=== PATIENT | male | born 1960 | race Caucasian/White ===

== ENCOUNTER 2019-05-15 08:23 | Emergency (ER) | payer BC ==
[~2019-05-15] VITALS: Ht 175.3 cm; Wt 60.0 kg
--- NOTE | 2019-05-15 09:26 | NUR ---
bp on high side 184/115mmhg,patient reports he takes losartan at home and will take it when he gets home,Eleanor VENTURA aware.
[2019-05-15 09:47] VITALS: BP 174/115
[2019-05-15] MEDS ORDERED: HYDROcodone/acetaminophen 10/325mg tab PO ONE (09:50)
--- NOTE | 2019-05-15 09:59 | NUR ---
SPOKE WITH LORENZO ALAS REGARDING PATIENT'S PAIN AND HIS DESIRE FOR A MRI OR CT SCAN NOW. PATIENT STATED TO ME "I GUESS YOU GUYS DON'T CARE ABOUT ME" BECAUSE WE ARE NOT DOING THE IMAGING THAT THE PATIENT THINKS HE NEEDS. I GAVE THE PATIENT HIS NORCO FOR HIS 10/10 THROBBING PAIN, THE PATIENT STATED "YOU GUYS DONT GIVE A DAMN ABOUT MY PAIN, YOU DONT BELIEVE ME" i REASSURED THE PATIENT THAT WE DO CARE ABOUT HIME AND HIS PAIN AND I AM GIVING YOU PAIN MEDICINE. I TOLD THE PATIENT WHAT LORENZO ALAS SAID REGARDING FURTHER IMAGING; THE ORTHOPEDIST AT THE [facility] WOULD DETERMINE IF FURTHER IMAGING WAS NEEDED. WHEN I SAID THAT THE PATIENT SAID "WELL, I GUESS I'LL JUST GET UP AND LEAVE." I STATED THAT YOU CAN ALWAYS LEAVE AT ANYTIME, BUT WE WOULD LIKE YOU TO STAY AND COMPLETE TREATMENT. IF YOU STILL WANT TO LEAVE I WILL GET THE AMA FORM FOR YOU." PATIENT DECIDED TO STAY. PATIENT IS WEARING A RIGHT KNEE IMMOBILZER AND HAS CRUTCHES AT BEDSIDE
[2019-05-15] MEDS ORDERED: IBUP-1984 PO (10:41)
[2019-05-15] MEDS ORDERED: HYDR-4383 PO (10:41)
== END 2019-05-15 10:59 | disposition home or self-care (01) ==
LOC: ER 08:23
DX: M23.91 Unspecified internal derangement of right knee (principal); Z79.899 Other long term (current) drug therapy; Z79.1 Long term (current) use of non-steroidal anti-inflammatories (NSAID); Z95.0 Presence of cardiac pacemaker; Z86.2 Personal history of diseases of the blood and blood-forming organs and certain disorders involving the immune mechanism; W18.39XA Other fall on same level, initial encounter; Y93.89 Activity, other specified; Y92.89 Other specified places as the place of occurrence of the external cause; Y99.8 Other external cause status
CPT/HCPCS: 29515; 73564; 99284

== ENCOUNTER 2020-04-18 06:00 | Emergency (ER) | payer BC ==
[~2020-04-18] VITALS: Ht 182.9 cm; Wt 59.1 kg
[~2020-04-18 06:00] MED LIST: HYDR-4383 PO
[2020-04-18] MEDS ORDERED: heparin sodium, porcine/PF 100unit/ml 5ML syringe IV ONE (06:20)
[2020-04-18] MEDS ORDERED: heparin sodium, porcine/PF 100unit/ml 5ML syringe IV SCH (06:20)
--- NOTE | 2020-04-18 06:27 | NUR ---
Pt's port flushed easily. Hep locked with 3mL of Heparin Flush.
[2020-04-18 06:35] VITALS: BP 140/95
== END 2020-04-18 06:36 | disposition home or self-care (01) ==
LOC: ER 06:02
DX: T82.898A Other specified complication of vascular prosthetic devices, implants and grafts, initial encounter (principal); I10 Essential (primary) hypertension; Z95.0 Presence of cardiac pacemaker; Z88.5 Allergy status to narcotic agent; Z79.899 Other long term (current) drug therapy; Y84.9 Medical procedure, unspecified as the cause of abnormal reaction of the patient, or of later complication, without mention of misadventure at the time of the procedure; Y92.89 Other specified places as the place of occurrence of the external cause
CPT/HCPCS: 96374; 99283; J1642; 99284

== ENCOUNTER 2020-04-28 08:38 | Emergency (ER) | payer BC, OTHER ==
[~2020-04-28] VITALS: Ht 182.9 cm; Wt 59.1 kg
[2020-04-28 09:17] LABS: BASOPHILS % (AUTO) 0.4 % (0-1); EOSINOPHILS # (AUTO) 0.1 X10'3 (0-0.9); EOSINOPHILS % (AUTO) 0.8 % (0-6); HEMATOCRIT 37.9 % (42.0-52.0); HEMOGLOBIN 13.3 g/dl (14.0-17.9); LYMPHOCYTES # (AUTO) 1.3 X10'3 (1.1-4.8); LYMPHOCYTES % (AUTO) 15.3 % (21-51); MEAN CORPUSCULAR HEMOGLOBIN 37.3 PG (27.0-31.0); MEAN CORPUSCULAR VOLUME 106.6 FL (78-98); MEAN PLATELET VOLUME 7.1 FL (7.4-10.4); MONOCYTES # (AUTO) 0.3 X10'3 (0-0.9); MONOCYTES % (AUTO) 3.6 % (2-12); NEUTROPHILS # (AUTO) 6.6 X10'3 (1.8-7.7); NEUTROPHILS % (AUTO) 79.9 % (42-75); PLATELET COUNT 203 X10'3 (140-440); RED BLOOD COUNT 3.55 X10'6 (4.70-6.10); RED CELL DISTRIBUTION WIDTH 15.1 % (11.5-14.5); WHITE BLOOD COUNT 8.3 X10'3 (4.5-11.0)
[2020-04-28 09:31] LABS: ALANINE AMINOTRANSFERASE 31 U/L (12-78); ALBUMIN 4.1 G/DL (3.4-5.0); ALBUMIN/GLOBULIN RATIO 0.9 (1.1-1.5); ALKALINE PHOSPHATASE 141 IU/L (46-116); ANION GAP 12 (8-16); ASPARTATE AMINO TRANSFERASE 50 U/L (10-37); BILIRUBIN,TOTAL 1.9 MG/DL (0.1-1.0); BLOOD UREA NITROGEN 13 MG/DL (7-18); BUN/CREATININE RATIO 7.9 (5.4-32.0); CHLORIDE 102 MMOL/L (99-107); CREATININE 1.65 MG/DL (0.60-1.10); GLUCOSE 111 MG/DL (70-104); LIPASE 261 U/L (73-393); POTASSIUM 3.4 MMOL/L (3.5-5.1); SODIUM 139 MMOL/L (135-145); TOTAL CARBON DIOXIDE 25.4 MMOL/L (24-32); TOTAL PROTEIN 8.5 G/DL (6.4-8.2); eGFR 43 ML/MIN
[2020-04-28] MEDS ORDERED: normal saline 1000ml 1,000 ML IV ONE (09:50)
--- NOTE | 2020-04-28 10:08 | NUR ---
PATIENT UNABLE TO PROVIDE URINE SAMPLE AT THIS TIME, WILL TRY AGAIN AFTER IV FLUIDS. PATIENT TO CT.
[2020-04-28] MEDS ORDERED: AMOX-422 PO (10:55)
[2020-04-28] MEDS ORDERED: METR-159 PO (10:55)
[2020-04-28 11:26] VITALS: BP 183/95
== END 2020-04-28 11:25 | disposition home or self-care (01) ==
LOC: ER 08:38
DX: K57.90 Diverticulosis of intestine, part unspecified, without perforation or abscess without bleeding (principal); R19.7 Diarrhea, unspecified; F12.90 Cannabis use, unspecified, uncomplicated; Z72.89 Other problems related to lifestyle; Z95.0 Presence of cardiac pacemaker; Z88.5 Allergy status to narcotic agent; Z79.899 Other long term (current) drug therapy
CPT/HCPCS: 36415; 74176; 80053; 83690; 85025; 93005; 96360; 99285; J7030

== ENCOUNTER 2020-06-20 08:48 | Emergency (ER) | payer BC, OTHER ==
[~2020-06-20] VITALS: Ht 182.9 cm; Wt 60.6 kg
[2020-06-20 08:59] VITALS: BP 171/104
[2020-06-20] MEDS ORDERED: heparin sodium, porcine/PF 100unit/ml 5ML syringe IV ONE (10:45)
[2020-06-20] MEDS ORDERED: heparin sodium, porcine/PF 100unit/ml 5ML syringe IV SCH (10:45)
--- NOTE | 2020-06-20 12:24 | NUR ---
Dr. Manley went into patient room to place port catheter and flush. Patient was not in room and unable to find patient. I attempted to contact patient at listed phone number with no answer.
== END 2020-06-20 12:26 | disposition left against medical advice (07) ==
LOC: ER 08:49
DX: Z45.2 Encounter for adjustment and management of vascular access device (principal); E88.01 Alpha-1-antitrypsin deficiency; Z95.0 Presence of cardiac pacemaker; F12.90 Cannabis use, unspecified, uncomplicated; Z72.89 Other problems related to lifestyle; Z88.5 Allergy status to narcotic agent; Z79.899 Other long term (current) drug therapy
CPT/HCPCS: 99281